=== PATIENT | female | born 1970 | race Caucasian/White ===

== ENCOUNTER 2024-01-07 08:56 | Inpatient (IN) | payer MEDICAID ==
[~2024-01-07] VITALS: Ht 170.2 cm; Wt 76.2 kg
[~2024-01-07 08:56] MED LIST: FLUO-418 PO
[2024-01-07] MEDS: HALOPERIDOL 5 MG TABLET PO PRN (10:26)
[2024-01-07] MEDS: LORazepam 2 MG TABLET PO PRN (10:26)
[2024-01-07] MEDS ORDERED: MAGNESIUM HYDROXIDE SUSPENSION 30 ML UDCUP PO PRN ×2 (11:15→11:45)
[2024-01-07] MEDS ORDERED: MAG HYDROX/ALUMINUM HYD/SIMETH ES 30 ML SUSPENSION UDCUP PO PRN ×2 (11:15→11:45)
[2024-01-07] MEDS ORDERED: PROMETHAZINE HCL 25 MG TABLET PO PRN (11:15)
[2024-01-07] MEDS ORDERED: TUBERCULIN, PURIFIED PROTEIN DERIVATIVE 5 TU/0.1 ML SYRINGE ID ONE (11:15)
[2024-01-07] MEDS ORDERED: GuaiFENesin/D-METHORPHAN [SUGAR-FREE] 200-20MG/10 ML SYRUP UDCUP PO PRN (11:15)
[2024-01-07] MEDS ORDERED: LOPERAMIDE HCL 2 MG CAPSULE PO PRN ×2 (11:15→11:45)
[2024-01-07] MEDS ORDERED: OMEPRAZOLE 20 MG CAPSULE PO PRN (11:45)
[2024-01-07] MEDS ORDERED: PETROLATUM,WHITE 28 GM JELLY TP PRN (11:45)
[2024-01-07] MEDS ORDERED: BENZOCAINE/MENTHOL LOZENGE PO PRN (11:45)
[2024-01-07] MEDS ORDERED: BACITRACIN 28 GM OINTMENT TP PRN (11:45)
[2024-01-07] MEDS ORDERED: ACETAMINOPHEN 325 MG TABLET PO PRN (11:45)
[2024-01-07] MEDS ORDERED: ONDANSETRON 4 MG TABLET PO PRN (11:45)
[2024-01-07] MEDS ORDERED: ALBUTEROL SULFATE HFA 90 MCG/PUFF 8 GM INHALER IH PRN (11:45)
[2024-01-07] MEDS ORDERED: CloNIDine HCL 0.1 MG TABLET PO PRN (11:45)
[2024-01-07] MEDS ORDERED: DOCUSATE SODIUM 100 MG CAPSULE PO PRN (11:45)
[2024-01-07 11:55] VITALS: BP 165/85; PULSE 85; RESP 18; TEMP 97.1; O2SAT 96
[2024-01-07] MEDS: THIAMINE 100 MG TABLET PO SCH (17:05)
[2024-01-07] MEDS: MELATONIN 5 MG TABLET PO SCH (20:22)
[2024-01-07] MEDS: DIVALPROEX SODIUM 500 MG ER TABLET PO SCH (20:22)
[2024-01-07] MEDS: OLANZapine 5 MG RAPDIS TABLET PO SCH (20:22)
[2024-01-07 20:40] VITALS: BP 109/70; PULSE 91; RESP 16; TEMP 98; O2SAT 97
[2024-01-08 08:37] VITALS: RESP 16
[2024-01-08 08:40] LABS: BASOPHILS % (AUTO) 0.4 % (0.0-2.0); EOSINOPHILS % (AUTO) 1.3 % (1.0-6.0); HEMATOCRIT 44.7 % (36-46); HEMOGLOBIN 14.8 g/dL (12.0-16.0); LYMPHOCYTES # (AUTO) 1.6 K/uL (1.0-4.8); LYMPHOCYTES % (AUTO) 20.3 % (22.0-44.0); MEAN CORPUSCULAR HEMOGLOBIN 29.6 pg (26.0-34.0); MEAN CORPUSCULAR HGB CONC 33.1 G/dL (31.0-37.0); MEAN CORPUSCULAR VOLUME 90 fL (80-100); MONOCYTES # (AUTO) 0.5 K/uL (0.1-1.0); MONOCYTES % (AUTO) 5.9 % (2.0-9.0); NEUTROPHILS # (AUTO) 5.9 K/uL (1.8-7.7); NEUTROPHILS % (AUTO) 72.1 % (40.0-70.0); PLATELET COUNT (AUTO) 452 K/uL (150-450); RED CELL DISTRIBUTION WIDTH 13.9 % (11.5-14.5); WHITE BLOOD COUNT (AUTO) 8.1 K/uL (4.5-11.0)
[2024-01-08] MEDS: MULTIVITAMINS WITH MINERALS, THERAPEUTIC TABLET PO SCH (08:43)
[2024-01-08] MEDS: FOLIC ACID 1 MG TABLET PO SCH (08:43)
[2024-01-08] MEDS: NALTREXONE HCL 50 MG TABLET PO SCH (08:43)
[2024-01-08 08:51] LABS: HEMOGLOBIN A1C 5.3 % (3.8-5.6)
[2024-01-08 09:07] LABS: ALANINE AMINOTRANSFERASE 26 U/L (12-78); ALBUMIN 3.7 g/dL (3.4-5.0); ALKALINE PHOSPHATASE 119 U/L (46-116); ANION GAP 12 mmol/L (8-16); ASPARTATE AMINOTRANSFERASE 18 U/L (15-37); BILIRUBIN,TOTAL 0.4 mg/dL (0.1-1.0); CALCIUM, TOTAL 8.9 mg/dL (8.8-10.5); CARBON DIOXIDE 27 mmol/L (22-29); CHLORIDE 104 mmol/L (98-107); CHOL/HDL RATIO 3.3 (3.9-5.7); CHOLESTEROL 221 mg/dL (131-200); FREE T4 (FREE THYROXINE) 1.26 ng/dL (0.76-1.46); GLOMERULAR FILTR. RATE CALC > 60 mL/min (>60); GLUCOSE,RANDOM 83 mg/dL (70-110); HDL CHOLESTEROL 66 mg/dL (40-60); LDL CHOL (CALC.) 134 mg/dL (0-130); POTASSIUM 3.7 mmol/L (3.5-5.1); SODIUM SERUM 143 mmol/L (136-145); THYROID STIMULATING HORMONE 0.36 uIU/mL (0.36-3.74); TOTAL PROTEIN, SERUM 7.4 g/dL (6.4-8.2); TRIGLYCERIDES 107 mg/dL (15-150); UREA NITROGEN, BLOOD 16 mg/dL (7-18)
[2024-01-08] MEDS: OLANZapine 5 MG RAPDIS TABLET PO PRN (09:42)
[2024-01-08] MEDS: IBUPROFEN 600 MG TABLET PO PRN (19:10)
[2024-01-08 21:37] VITALS: BP 111/76; PULSE 107; RESP 16; TEMP 97.3; O2SAT 95
[2024-01-09 09:25] VITALS: RESP 16
[2024-01-09 10:03] VITALS: BP 129/78; PULSE 96; RESP 17; TEMP 97.6; O2SAT 97
[2024-01-09 10:25] VITALS: RESP 17
[2024-01-09] MEDS: ACETAMINOPHEN 325 MG TABLET PO PRN (18:03)
[2024-01-09] MEDS: HydrOXYzine PAMOATE 50 MG CAPSULE PO PRN (18:18)
[2024-01-09] MEDS: ZOLPIDEM TARTRATE 10 MG TABLET PO PRN (20:33)
[2024-01-09 20:39] VITALS: BP 113/70; PULSE 93; RESP 18; TEMP 97.1; O2SAT 95
[2024-01-09 22:25] VITALS: RESP 18
[2024-01-09 23:25] VITALS: RESP 16
[2024-01-10 08:28] VITALS: BP 117/80; PULSE 102; RESP 16; TEMP 98; O2SAT 96
[2024-01-10 16:49] VITALS: BP 123/81; PULSE 103; RESP 17; TEMP 98.7; O2SAT 97
[2024-01-10 17:29] VITALS: RESP 18; O2SAT 98
[2024-01-10] MEDS: OLANZapine 10 MG RAPDIS TABLET PO SCH (20:35)
[2024-01-10 20:54] VITALS: BP 112/86; PULSE 102; RESP 16; TEMP 98; O2SAT 98
[2024-01-11 08:47] VITALS: BP 119/77; PULSE 100; RESP 16; TEMP 97.9; O2SAT 98
[2024-01-11 13:27] VITALS: RESP 16
[2024-01-11 14:27] VITALS: RESP 16
[2024-01-11 17:21] LABS: GLUCOMETER DEV NAME(LOC) POC.BV; POC SARS-COV2 AG, FIA NEGATIVE (NEGATIVE)
[2024-01-11 18:40] VITALS: BP 137/84
[2024-01-11 20:00] VITALS: BP 133/89; PULSE 100; RESP 16; TEMP 98; O2SAT 97
[2024-01-12 08:35] VITALS: BP 126/69; PULSE 84; RESP 16; TEMP 97.9; O2SAT 98
[2024-01-12 10:40] LABS: GLUCOMETER DEV NAME(LOC) POC.BV; POC SARS-COV2 AG, FIA NEGATIVE (NEGATIVE)
[2024-01-12 21:08] VITALS: BP 156/99; PULSE 102; RESP 19; TEMP 97.6; O2SAT 96
[2024-01-13 08:42] VITALS: BP 141/88; PULSE 100; RESP 16; TEMP 97.8; O2SAT 96
[2024-01-13] MEDS ORDERED: DIVA-153 PO (12:16)
[2024-01-13] MEDS ORDERED: NALT50TA33 PO (12:17)
[2024-01-13] MEDS ORDERED: OLAN10TA26 PO (12:17)
== END 2024-01-13 18:53 | disposition home or self-care (01) | DRG 750 ==
LOC: B3A 09:17
PROVIDERS: ADMIT Psychiatry & Neurology Psychiatry; ATTEND Psychiatry & Neurology Psychiatry
DX: F25.9 Schizoaffective disorder, unspecified (principal); Z91.148 Patient's other noncompliance with medication regimen for other reason; F12.90 Cannabis use, unspecified, uncomplicated; F41.9 Anxiety disorder, unspecified; G47.00 Insomnia, unspecified; I10 Essential (primary) hypertension; K59.00 Constipation, unspecified; Z20.822 Contact with and (suspected) exposure to COVID-19; F17.210 Nicotine dependence, cigarettes, uncomplicated; T43.96XA Underdosing of unspecified psychotropic drug, initial encounter; Y92.89 Other specified places as the place of occurrence of the external cause; Z55.9 Problems related to education and literacy, unspecified; Z59.9 Problem related to housing and economic circumstances, unspecified; Z63.9 Problem related to primary support group, unspecified; Z65.3 Problems related to other legal circumstances; Z81.8 Family history of other mental and behavioral disorders
CPT/HCPCS: 80053; 80061; 80164; 83036; 84439; 84443; 85025; 86592